=== PATIENT | male | born 1980 | race African-American/Black ===

== ENCOUNTER 2023-03-01 16:01 | Emergency (ER) | payer MEDICAID, OTHER ==
[~2023-03-01] VITALS: Ht 170.2 cm; Wt 72.0 kg
[2023-03-01 16:13] VITALS: BP 142/47; PULSE 64; RESP 16; TEMP 97.9; O2SAT 100
[2023-03-01 17:14] LABS: BASOPHILS % 0.4 % (0.0-2.0); HEMATOCRIT. 41.3 % (42.0-52.0); HEMOGLOBIN. 13.5 g/dL (14.0-18.0); LYMPHOCYTES % 10.6 % (20.0-50.0); MEAN CORPUSCULAR HEMOGLOBIN 32.5 pg (28.0-32.0); MEAN CORPUSCULAR HGB CONC 32.6 g/dL (31.0-37.0); MEAN CORPUSCULAR VOLUME 99.8 fL (80.0-94.0); MEAN PLATELET VOLUME 8.3 fl (7.4-10.4); PLATELET 334 x1000/uL (130-400); RED BLOOD CELL COUNT 4.14 mill/uL (4.7-6.1); RED CELL DISTRIBUTION WIDTH 11.7 % (11.6-14.6); WHITE BLOOD COUNT 13.4 x1000/uL (4.5-11.0)
[2023-03-01 17:22] LABS: ALANINE AMINOTRANSFERASE 21 IU/L (10-49); ALBUMIN 4.4 g/dL (3.2-4.8); ASPARTATE AMINOTRANSFERASE 21 IU/L (<34); BILIRUBIN TOTAL 1.4 mg/dL (0.1-1.0); CALCIUM 9.6 mg/dL (8.7-10.4); CARBON DIOXIDE 30 mEq/L (21-32); CHLORIDE 101 mEq/L (98-107); CREATININE 1.1 mg/dL (0.6-1.3); GLUCOSE 91 mg/dL (70-105); POTASSIUM 4.1 mEq/L (3.5-5.1); PROTEIN TOTAL 7.9 g/dL (6.0-8.3); SODIUM 137 mEq/L (136-145); UREA NITROGEN BLOOD 7 mg/dL (9-23)
[2023-03-01] MEDS ORDERED: AMOX1TAB16 MT (18:26)
[2023-03-01] MEDS ORDERED: TOPUD MT (18:27)
[2023-03-01] MEDS ORDERED: AMOXICILLIN/POTASSIUM CLAVULANATE 875/125MG TAB PO ONE (18:30)
[2023-03-01] MEDS ORDERED: AMOXICILLIN/POTASSIUM CLAVULANATE 875/125MG TAB PO NR (18:45)
== END 2023-03-01 19:02 | disposition home or self-care (01) ==
LOC: ER 16:01
DX: K04.7 Periapical abscess without sinus (principal)
CPT/HCPCS: 80053; 85025; 36415; 70487; 99285; Z7610

== ENCOUNTER 2024-01-23 03:52 | Emergency (ER) | payer OTHER ==
[~2024-01-23] VITALS: Ht 170.2 cm; Wt 67.5 kg
[~2024-01-23 03:52] MED LIST: AMOX1TAB16 MT; TOPUD MT
[2024-01-23 04:02] VITALS: O2SAT 98
[2024-01-23] MEDS: DIPHENHYDRAMINE 25MG CAPSULE PO ONE (04:15)
[2024-01-23] MEDS: METOCLOPRAMIDE HCL 10MG TABLET PO ONE (04:15)
[2024-01-23] MEDS: ACETAMINOPHEN 500MG TABLET PO ONE (04:15)
[2024-01-23] MEDS ORDERED: ACET-2708 MT (05:09)
[2024-01-23 05:30] VITALS: BP 136/74; PULSE 79; RESP 20; TEMP 36.83628; O2SAT 100
== END 2024-01-23 05:35 | disposition home or self-care (01) ==
LOC: ER 03:52
DX: R51.9 Headache, unspecified (principal); H53.8 Other visual disturbances; Z98.890 Other specified postprocedural states
CPT/HCPCS: 99284; Q0163; J8597